=== PATIENT | female | born 2005 | race Caucasian/White ===

== ENCOUNTER 2024-09-02 10:15 | Emergency (ER) | payer SELFPAY ==
[~2024-09-02] VITALS: Ht 180.3 cm; Wt 72.6 kg
[2024-09-02] MEDS ORDERED: methylPREDNISolone sod succ 125 MG VIAL IM ONE (11:30)
[2024-09-02] MEDS ORDERED: Ketorolac Tromethamine 30 MG/ML VIAL IM ONE (11:30)
[2024-09-02] MEDS ORDERED: CYCLOBENZAPRINE5 M3 PO (11:49)
== END 2024-09-02 11:58 | disposition home or self-care (01) ==
LOC: ED 10:15
DX: S16.1XXA Strain of muscle, fascia and tendon at neck level, initial encounter (principal); M79.602 Pain in left arm; X50.0XXA Overexertion from strenuous movement or load, initial encounter; Y93.89 Activity, other specified; Y92.009 Unspecified place in unspecified non-institutional (private) residence as the place of occurrence of the external cause; Y99.8 Other external cause status